=== PATIENT | male | born 1965 | race Hispanic/Latino ===

== ENCOUNTER 2021-10-31 19:15 | Emergency (ER) | payer OTHER | END 2021-10-31 21:47 | LOC: CSHERS 19:15 | DX: H10.9 Unspecified conjunctivitis (principal); I10 Essential (primary) hypertension; E11.9 Type 2 diabetes mellitus without complications | CPT/HCPCS: 99283 ==

== ENCOUNTER 2024-06-27 14:33 | Outpatient (CLI) | payer OTHER | END 2024-06-27 14:34 | disposition home or self-care (01) | LOC: CSHDTY/OP 14:33 | PROVIDERS: ATTEND Surgery | DX: K59.09 Other constipation (principal) | CPT/HCPCS: 97802 ==

== ENCOUNTER 2024-07-28 13:33 | Outpatient (CLI) | payer OTHER | END 2024-07-28 13:34 | disposition home or self-care (01) | LOC: CSHDTY/OP 13:33 | PROVIDERS: ATTEND Surgery | DX: K59.09 Other constipation (principal) | CPT/HCPCS: 97802 ==

== ENCOUNTER 2024-08-31 15:02 | Outpatient (CLI) | payer OTHER | END 2024-08-31 15:03 | disposition home or self-care (01) | LOC: CSHDTY/OP 15:02 | PROVIDERS: ATTEND Surgery | DX: K59.09 Other constipation (principal) | CPT/HCPCS: 97802 ==

== ENCOUNTER 2024-09-27 11:43 | Outpatient (CLI) | payer OTHER | END 2024-09-27 11:44 | disposition home or self-care (01) | LOC: CSHCP 11:43 | PROVIDERS: ATTEND Internal Medicine | DX: Z01.818 Encounter for other preprocedural examination (principal) | CPT/HCPCS: 94060; 94664; 94726; 94729; 94760 ==

== ENCOUNTER 2024-10-19 18:00 | Outpatient (CLI) | payer OTHER | END 2024-10-19 18:01 | disposition home or self-care (01) | LOC: CSHSLEEP 18:00 | PROVIDERS: ATTEND Internal Medicine | DX: Z01.818 Encounter for other preprocedural examination (principal); G47.33 Obstructive sleep apnea (adult) (pediatric) | CPT/HCPCS: 95800 ==